=== PATIENT | female | born 1980 | race American Indian/Alaskan Native ===

== ENCOUNTER 2017-08-26 22:43 | Emergency (ER) | payer MEDICAID ==
[2017-08-26] MEDS ORDERED: NACL 0.9% 1000 ML 1,000 ML IV ONE (22:56)
[2017-08-26] MEDS ORDERED: REGLAN IV ONE (22:57)
[2017-08-26] MEDS ORDERED: BENADRYL IV ONE (22:57)
[2017-08-26] MEDS ORDERED: FIORICET PO ONE (22:58)
--- NOTE | 2017-08-26 22:59 | Emergency Department Report ---
ED General Adult HPI - General Chief complaint: Headache Stated complaint: HEADACHE Time Seen by Provider: 08/26/17 22:54 Source: patient, EMS Mode of arrival: Stretcher Limitations: No Limitations - History of Present Illness Initial comments: Patient complains of a diffuse headache that started yesterday. Patient states she has a history of headaches but has not had one like this in quite some time. She states this is not the worse headache of her life. She describes the pain as throbbing and rates it a 9 out of 10. She denies a fever or any other associated symptoms. - Related Data Previous Rx's Medication Instructions Recorded Last Taken Type ALBUTEROL Inhaler [ProAir HFA 2 puff IH QID PRN #1 inhalation 09/09/15 Unknown Rx Inhaler] predniSONE [Deltasone] 20 mg PO QDAY #3 tab 09/09/15 Unknown Rx Butalb/Acetaminophen/Caffeine 1 cap PO Q6HR PRN #30 cap 08/27/17 Unknown Rx [Fioricet 50-300-40 mg CAP] Allergies Allergy/AdvReac Type Severity Reaction Status Date / Time No Known Allergies Allergy Verified 09/09/15 08:19 ED Review of Systems ROS: Stated complaint: HEADACHE Other details as noted in HPI Comment: All other systems reviewed and negative Constitutional: denies: chills, fever Eyes: denies: eye pain, eye discharge, vision change ENT: denies: ear pain, throat pain Respiratory: denies: cough, shortness of breath, wheezing Cardiovascular: denies: chest pain, palpitations Endocrine: no symptoms reported Gastrointestinal: denies: abdominal pain, nausea, diarrhea Genitourinary: denies: urgency, dysuria, discharge Musculoskeletal: denies: back pain, joint swelling, arthralgia Skin: denies: rash, lesions Neurological: denies: headache, weakness, paresthesias Psychiatric: denies: anxiety, depression Hematological/Lymphatic: denies: easy bleeding, easy bruising ED Past Medical Hx - Past Medical History Hx Asthma: Yes - Surgical History Past Surgical History?: Yes Additional Surgical History: - Social History Smoking Status: Current Every Day Smoker Substance Use Type: None - Medications Home Medications: Home Medications Medication Instructions Recorded Confirmed Last Taken Type ALBUTEROL Inhaler [ProAir HFA 2 puff IH QID PRN #1 inhalation 09/09/15 Unknown Rx Inhaler] predniSONE [Deltasone] 20 mg PO QDAY #3 tab 09/09/15 Unknown Rx Butalb/Acetaminophen/Caffeine 1 cap PO Q6HR PRN #30 cap 08/27/17 Unknown Rx [Fioricet 50-300-40 mg CAP] ED Physical Exam - General Limitations: No Limitations General appearance: alert, in no apparent distress - Head Head exam: Present: atraumatic, normocephalic - Eye Eye exam: Present: normal appearance - ENT ENT exam: Present: mucous membranes moist - Neck Neck exam: Present: normal inspection - Respiratory Respiratory exam: Present: normal lung sounds bilaterally. Absent: respiratory distress - Cardiovascular Cardiovascular Exam: Present: regular rate, normal rhythm. Absent: systolic murmur, diastolic murmur, rubs, gallop - GI/Abdominal GI/Abdominal exam: Present: soft, normal bowel sounds - Extremities Exam Extremities exam: Present: normal inspection - Back Exam Back exam: Present: normal inspection - Neurological Exam Neurological exam: Present: alert, oriented X3 - Psychiatric Psychiatric exam: Present: normal affect, normal mood - Skin Skin exam: Present: warm, dry, intact, normal color. Absent: rash ED Course Vital Signs 08/26/17 08/26/17 08/26/17 22:52 22:57 22:58 Temperature 98.3 F Pulse Rate 68 Respiratory 20 20 Rate Blood Pressure Blood Pressure 146/69 [Right] O2 Sat by Pulse 100 99 100 Oximetry 08/26/17 08/26/17 08/27/17 23:00 23:30 00:00 Temperature Pulse Rate Respiratory Rate Blood Pressure 146/78 133/73 146/69 Blood Pressure [Right] O2 Sat by Pulse 98 93 98 Oximetry ED Medical Decision Making - Medical Decision Making Patient had relief of headache with medications Critical care attestation.: If time is entered above; I have spent that time in minutes in the direct care of this critically ill patient, excluding procedure time. ED Disposition Clinical Impression: Headache Disposition: DC- TO HOME OR SELFCARE Is pt being admited?: No Does the pt Need Aspirin: No Condition: Stable Instructions: Acute Headache (ED) Prescriptions: Butalb/Acetaminophen/Caffeine [Fioricet 50-300-40 mg CAP] 1 cap PO Q6HR PRN #30 cap PRN Reason: Headache Time of Disposition: 00:42
[2017-08-26] MEDS ORDERED: IMITREX SUB-Q ONE (23:40)
[2017-08-27 01:38] VITALS: BP 122/68
== END 2017-08-27 01:50 | disposition home or self-care (01) ==
LOC: ED 22:43
DX: R51 Headache (principal); J45.909 Unspecified asthma, uncomplicated; F17.200 Nicotine dependence, unspecified, uncomplicated
CPT/HCPCS: 96372; 96374; 96375; 99282; J1200; J2765; J2930; J7030; J3030

== ENCOUNTER 2019-07-06 22:26 | Emergency (ER) | payer SELFPAY ==
[2019-07-06] MEDS ORDERED: CLINDAMYCIN 600 MG/50 mL 600 MG/50 ML BAG IV ONE (22:37)
[2019-07-06] MEDS ORDERED: MORPHINE 4 MG/1 ML INJ IV ONE (22:37)
[2019-07-06] MEDS ORDERED: SODIUM CHLORIDE 0.9% 1000 ML 1,000 ML IV ONE (22:37)
[2019-07-06] MEDS ORDERED: dexAMETHasone 20 MG/5 ML VIAL IV ONE (22:37)
[2019-07-06] MEDS ORDERED: ONDANSETRON 4 MG/2 ML INJ IV ONE (22:37)
--- NOTE | 2019-07-07 00:08 | Emergency Department Report ---
ED General Adult HPI - General Chief complaint: Skin/Abscess/Foreign Body Stated complaint: TOOTH ABCESS Time Seen by Provider: 07/06/19 22:37 Source: patient, EMS Mode of arrival: Stretcher Limitations: No Limitations - History of Present Illness Initial comments: Patient is a 38-year-old Female is presenting with dental abscess to tooth #31. Patient was seen in an outside emergency department yesterday and was started on amoxicillin. Patient also had a drainable area which was I&D'd. Patient has a small wick in place at this time. Patient states that she is continued to have worsening swelling and pain. Patient was also started on NSAIDs. Patient started on amoxicillin. Patient states she feels as though the swelling has worsened and she has some difficulty with breathing and feels as though her throat is closing. Patient has had subjective fevers but she denies nausea vomiting diarrhea cough cold or congestion at this time. Severity scale (0 -10): 10 - Related Data Previous Rx's Medication Instructions Recorded Last Taken Type ALBUTEROL Inhaler (OR & NICU) 2 puff IH QID PRN #1 inhalation 09/09/15 Unknown Rx [ProAir HFA Inhaler] predniSONE [Deltasone] 20 mg PO QDAY #3 tab 09/09/15 Unknown Rx Butalb/Acetaminophen/Caffeine 1 cap PO Q6HR PRN #30 cap 08/27/17 Unknown Rx [Fioricet 50-300-40 mg CAP] Clindamycin [Clindamycin CAP] 300 mg PO Q8H #21 cap 07/07/19 Unknown Rx HYDROcodone/ACETAMINOPHEN 15 ml PO Q6H PRN #150 solution 07/07/19 Unknown Rx [Hydrocodon-Acetamin 7.5-325/15] predniSONE [Deltasone] 20 mg PO QDAY #5 tab 07/07/19 Unknown Rx Allergies Allergy/AdvReac Type Severity Reaction Status Date / Time No Known Allergies Allergy Verified 09/09/15 08:19 ED Review of Systems ROS: Stated complaint: TOOTH ABCESS Other details as noted in HPI Comment: All other systems reviewed and negative ED Past Medical Hx - Past Medical History Hx Asthma: Yes - Surgical History Additional Surgical History: - Social History Smoking Status: Current Every Day Smoker - Medications Home Medications: Home Medications Medication Instructions Recorded Confirmed Last Taken Type ALBUTEROL Inhaler (OR & NICU) 2 puff IH QID PRN #1 inhalation 09/09/15 Unknown Rx [ProAir HFA Inhaler] predniSONE [Deltasone] 20 mg PO QDAY #3 tab 09/09/15 Unknown Rx Butalb/Acetaminophen/Caffeine 1 cap PO Q6HR PRN #30 cap 08/27/17 Unknown Rx [Fioricet 50-300-40 mg CAP] Clindamycin [Clindamycin CAP] 300 mg PO Q8H #21 cap 07/07/19 Unknown Rx HYDROcodone/ACETAMINOPHEN 15 ml PO Q6H PRN #150 solution 07/07/19 Unknown Rx [Hydrocodon-Acetamin 7.5-325/15] predniSONE [Deltasone] 20 mg PO QDAY #5 tab 07/07/19 Unknown Rx ED Physical Exam - General Limitations: No Limitations General appearance: alert, in no apparent distress - Head Head exam: Present: atraumatic, normocephalic - Expanded Head Exam Expanded 1 - Patient with swelling to the angle of the jaw with some skin induration. - Eye Eye exam: Present: normal appearance - ENT ENT exam: Present: mucous membranes moist, other (patient was pain to palpation to tooth #30-32. Wick is in place. Patient has some mild trismus however she has no muffled voice posterior pharynx is within normal limits and the patient is able to swallow without difficulty) - Neck Neck exam: Present: normal inspection - Respiratory Respiratory exam: Present: normal lung sounds bilaterally. Absent: respiratory distress, wheezes, rales, rhonchi - Cardiovascular Cardiovascular Exam: Present: regular rate, normal rhythm, normal heart sounds. Absent: systolic murmur, diastolic murmur, rubs, gallop - GI/Abdominal GI/Abdominal exam: Present: soft, normal bowel sounds. Absent: distended, tenderness, guarding - Extremities Exam Extremities exam: Present: normal inspection - Back Exam Back exam: Present: normal inspection - Neurological Exam Neurological exam: Present: alert, oriented X3 - Psychiatric Psychiatric exam: Present: normal affect, normal mood - Skin Skin exam: Present: warm, dry, intact, normal color. Absent: rash ED Course Vital Signs 07/06/19 07/06/19 23:04 23:08 Temperature 98.3 F Pulse Rate 79 Respiratory 18 18 Rate Blood Pressure 110/64 O2 Sat by Pulse 99 Oximetry ED Medical Decision Making - Medical Decision Making Patient was placed on amoxicillin. Given the patient's dental abscess with facial cellulitis wants a stronger antibiotic at this time. Patient given IV clindamycin and will be discharged with clindamycin as well. Patient started on a short course of steroids. Patient does appear to be safe for discharge. Patient has an appointment to see oral surgery on Tuesday. Critical care attestation.: If time is entered above; I have spent that time in minutes in the direct care of this critically ill patient, excluding procedure time. ED Disposition Clinical Impression: Dental abscess, Facial cellulitis Disposition: TO HOME OR SELFCARE Is pt being admited?: No Does the pt Need Aspirin: No Condition: Stable Instructions: Dental Abscess (ED) Additional Instructions: Please follow up with oral surgery Time of Disposition: 00:09
[2019-07-07 00:41] VITALS: BP 106/64
== END 2019-07-07 00:42 | disposition home or self-care (01) ==
LOC: ED 22:26
DX: K04.7 Periapical abscess without sinus (principal); L03.211 Cellulitis of face; J45.909 Unspecified asthma, uncomplicated; F17.200 Nicotine dependence, unspecified, uncomplicated; Z79.899 Other long term (current) drug therapy
CPT/HCPCS: 96365; 96375; 99283; J1100; J2270; J2405; J7030

== ENCOUNTER 2019-07-15 15:10 | Emergency (ER) | payer SELFPAY ==
[2019-07-15 15:25] VITALS: BP 130/74
[2019-07-15] MEDS ORDERED: diphenhydrAMINE 50 MG/ML VIAL IV ONE (17:28)
[2019-07-15] MEDS ORDERED: KETOROLAC 30 MG/1 ML INJ IV ONE (17:28)
[2019-07-15] MEDS ORDERED: METOCLOPRAMIDE 10 MG/2 ML INJ IV ONE (17:28)
[2019-07-15] MEDS ORDERED: SODIUM CHLORIDE 0.9% 1000 ML 1,000 ML IV ONE (17:28)
--- NOTE | 2019-07-15 17:31 | Emergency Department Report ---
ED Headache HPI - General Chief Complaint: Headache Stated Complaint: VOMITING,HEADACHE Time Seen by Provider: 07/15/19 17:28 - History of Present Illness Initial Comments: pt is a 38 yo female who presents to the ED with c/o right temporal CARTAGENA that began this morning. she has associated photophobia, nausea, and vomiting. she denies any fever, neck stiffness, thunderclap headache, diarrhea, numbness, weakness, or vision changes. she states she has been treated in the ED before for "migraines." she denies any allergies to meds. she states her LNMP two weeks ago. Allergies/Adverse Reactions: Allergies No Known Allergies Allergy (Verified 09/09/15 08:19) Home Medications: Ambulatory Orders Albuterol INH(or & Nicu Only) [ProAir HFA Inhaler] 2 puff IH QID PRN #1 inha lation 09/09/15 predniSONE [Deltasone] 20 mg PO QDAY #3 tab 09/09/15 Butalb/Acetaminophen/Caffeine [Fioricet 50-300-40 mg CAP] 1 cap PO Q6HR PRN #30 cap 08/27/17 Clindamycin [Clindamycin CAP] 300 mg PO Q8H #21 cap 07/07/19 HYDROcodone/ACETAMINOPHEN [Hydrocodon-Acetamin 7.5-325/15] 15 ml PO Q6H PRN #150 solution 07/07/19 predniSONE [Deltasone] 20 mg PO QDAY #5 tab 07/07/19 Butalb/Acetaminophen/Caffeine [Fioricet 50-300-40 mg CAP] 1 cap PO Q8HR PRN #10 cap 07/15/19 Ondansetron [Zofran Odt] 4 mg PO Q8HR PRN #10 tab.rapdis 07/15/19 ED Review of Systems ROS: Stated complaint: VOMITING,HEADACHE Other details as noted in HPI Comment: All other systems reviewed and negative ED Past Medical Hx - Past Medical History Previous Medical History?: Yes Hx Headaches / Migraines: Yes Hx Asthma: Yes - Surgical History Past Surgical History?: No Additional Surgical History: - Social History Smoking Status: Current Every Day Smoker Substance Use Type: Alcohol, Marijuana - Medications Home Medications: Home Medications Medication Instructions Recorded Confirmed Last Taken Type Albuterol INH(or & Nicu Only) 2 puff IH QID PRN #1 inhalation 09/09/15 Unknown Rx [ProAir HFA Inhaler] predniSONE [Deltasone] 20 mg PO QDAY #3 tab 09/09/15 Unknown Rx Butalb/Acetaminophen/Caffeine 1 cap PO Q6HR PRN #30 cap 08/27/17 Unknown Rx [Fioricet 50-300-40 mg CAP] Clindamycin [Clindamycin CAP] 300 mg PO Q8H #21 cap 07/07/19 Unknown Rx HYDROcodone/ACETAMINOPHEN 15 ml PO Q6H PRN #150 solution 07/07/19 Unknown Rx [Hydrocodon-Acetamin 7.5-325/15] predniSONE [Deltasone] 20 mg PO QDAY #5 tab 07/07/19 Unknown Rx Butalb/Acetaminophen/Caffeine 1 cap PO Q8HR PRN #10 cap 07/15/19 Unknown Rx [Fioricet 50-300-40 mg CAP] Ondansetron [Zofran Odt] 4 mg PO Q8HR PRN #10 tab.rapdis 07/15/19 Unknown Rx ED Physical Exam - General Limitations: No Limitations General appearance: alert, in no apparent distress - Head Head exam: Present: atraumatic, normocephalic - Eye Eye exam: Present: normal appearance, PERRL, EOMI - ENT ENT exam: Present: mucous membranes moist - Respiratory Respiratory exam: Present: normal lung sounds bilaterally. Absent: respiratory distress, wheezes, rales, rhonchi, stridor, chest wall tenderness, accessory muscle use, decreased breath sounds, prolonged expiratory - Cardiovascular Cardiovascular Exam: Present: regular rate, normal rhythm, normal heart sounds. Absent: systolic murmur, diastolic murmur, rubs, gallop - Neurological Exam Neurological exam: Present: alert, oriented X3, CN II-XII intact, normal gait, other (normal finger to nose, normal heel to nguyen, equal bereavement program coordinator strength, 5/5 strength in the BUE/BLE, sensation intact throughout, normal tandem walking, no pronator drift, no facial asymmetry, no focal neuro deficit). Absent: motor sensory deficit - Psychiatric Psychiatric exam: Present: normal affect, normal mood - Skin Skin exam: Present: warm, dry, intact ED Course Vital Signs 07/15/19 15:21 Temperature 97.6 F Pulse Rate 68 Respiratory 18 Rate Blood Pressure 130/74 O2 Sat by Pulse 100 Oximetry ED Medical Decision Making - Medical Decision Making pt is a 38 yo female who presents to the ED with c/o right temporal CARTAGENA that began this morning. she has associated photophobia, nausea, and vomiting. she denies any fever, neck stiffness, thunderclap headache, diarrhea, numbness, weakness, or vision changes. she states she has been treated in the ED before for "migraines." she denies any allergies to meds. she states her LNMP two weeks ago. VSS. no neuro deficits on examination. Patient given 1 L normal saline, Reglan, Benadryl, Toradol and her headache resolved. Given prescription for fioricet and zofran to take as needed. advised pt to please take medication as prescribed as needed. increase your fluid intake over the next several days. follow up with a primary care doctor and a neurologist. return to the emergency room for any new or worsening symptoms. - Differential Diagnosis migraine, tension CARTAGENA, cluster CARTAGENA, sinusitis, ICH Critical care attestation.: If time is entered above; I have spent that time in minutes in the direct care of this critically ill patient, excluding procedure time. ED Disposition Clinical Impression: Headache Qualifiers: Headache type: unspecified Headache chronicity pattern: acute headache Intractability: not intractable Qualified Code(s): R51 - Headache Disposition: DC-01 TO HOME OR SELFCARE Is pt being admited?: No Does the pt Need Aspirin: No Condition: Stable Instructions: Migraine Headache (ED) Additional Instructions: please take medication as prescribed as needed. increase your fluid intake over the next several days. follow up with a primary care doctor and a neurologist. return to the emergency room for any new or worsening symptoms. Prescriptions: Butalb/Acetaminophen/Caffeine [Fioricet 50-300-40 mg CAP] 1 cap PO Q8HR PRN #10 cap PRN Reason: headache Ondansetron [Zofran Odt] 4 mg PO Q8HR PRN #10 tab.rapdis PRN Reason: Nausea And Vomiting Referrals: ALL DILLON MD [Staff Physician] - 2-3 Days [facility] [place] [Outside] - 2-3 Days [facility] [Outside] - 2-3 Days ALEXA GLOVER MD [Staff Physician] - 2-3 Days YOSELIN WILL MD [Referring] - 2-3 Days ELI FERNANDEZ MD [Staff Physician] - 2-3 Days Forms: Accompanied Note, Work/School Release Form(ED) Time of Disposition: 18:30 Print Language: SPANISH
== END 2019-07-15 19:01 | disposition home or self-care (01) ==
LOC: ED 15:10
DX: R51 Headache (principal); R11.2 Nausea with vomiting, unspecified; H53.149 Visual discomfort, unspecified; J45.909 Unspecified asthma, uncomplicated; G43.909 Migraine, unspecified, not intractable, without status migrainosus; F17.200 Nicotine dependence, unspecified, uncomplicated; F12.10 Cannabis abuse, uncomplicated; Z98.890 Other specified postprocedural states; Z79.899 Other long term (current) drug therapy
CPT/HCPCS: 96361; 96374; 96375; 99282; J1200; J1885; J2765; J7030

== ENCOUNTER 2021-06-11 20:01 | Emergency (ER) | payer SELFPAY ==
[2021-06-11] MEDS ORDERED: dexAMETHasone 20 MG/5 ML VIAL IV ONE (22:30)
[2021-06-11] MEDS ORDERED: KETOROLAC 30 MG/1 ML INJ IV ONE (22:30)
[2021-06-11] MEDS ORDERED: SUMAtriptan SUCCINATE 6 MG/0.5 ML INJ SUB-Q ONE (22:30)
[2021-06-11] MEDS ORDERED: MORPHINE 4 MG/1 ML INJ IV ONE (22:31)
[2021-06-11] MEDS ORDERED: ONDANSETRON 4 MG/2 ML INJ IV ONE (22:31)
--- NOTE | 2021-06-11 22:34 | Emergency Department Report ---
ED Headache HPI - General Chief Complaint: Headache Stated Complaint: MIGRAINE Time Seen by Provider: 06/11/21 22:24 - History of Present Illness Initial Comments: Chief complaint: "A migraine." History ago is 40-year-old female with history of asthma and migraine headache who presents with severe headache tinnitus in right temporal region. Photophobia vomiting. This headache present for 2 days. Has had previous ED visits for headache. Has had migraine headaches since age of 18. Normally has severe headache every few months. Unknown triggers. She does not have a primary physician. Timing/Duration: other (2 days) Quality: severe Head Injury Location: temporal (Right temporal) Recent Head Trauma: frequent headaches Modifying Factors: improves with: exposure to light Associated Symptoms: nausea/vomiting Allergies/Adverse Reactions: Allergies No Known Allergies Allergy (Verified 09/09/15 08:19) Home Medications: Ambulatory Orders Albuterol Mdi (or & Nicu Only) [ProAir HFA Inhaler] 2 puff IH QID PRN #1 i nhalation 09/09/15 predniSONE [Deltasone] 20 mg PO QDAY #3 tab 09/09/15 Butalb/Acetaminophen/Caffeine [Fioricet 50-300-40 mg CAP] 1 cap PO Q6HR PRN #30 cap 08/27/17 Clindamycin [Clindamycin CAP] 300 mg PO Q8H #21 cap 07/07/19 HYDROcodone/ACETAMINOPHEN [Hydrocodon-Acetamin 7.5-325/15] 15 ml PO Q6H PRN #150 solution 07/07/19 predniSONE [Deltasone] 20 mg PO QDAY #5 tab 07/07/19 Butalb/Acetaminophen/Caffeine [Fioricet 50-300-40 mg CAP] 1 cap PO Q8HR PRN #10 cap 07/15/19 Ondansetron [Zofran Odt] 4 mg PO Q8HR PRN #10 tab.rapdis 07/15/19 Ibuprofen [Motrin 800 MG tab] 800 mg PO Q8HR PRN #20 tablet 06/12/21 Promethazine [Phenergan] 25 mg PO Q6HR PRN #10 tab 06/12/21 SUMAtriptan succinate [Imitrex] 50 mg PO DAILY PRN #10 tablet 06/12/21 ED Review of Systems ROS: Stated complaint: MIGRAINE Other details as noted in HPI Comment: All other systems reviewed and negative Constitutional: denies: fever, malaise Eyes: denies: as per HPI Respiratory: denies: cough, shortness of breath Cardiovascular: denies: chest pain Gastrointestinal: nausea, vomiting Neurological: headache. denies: numbness, paresthesias Psychiatric: denies: auditory hallucinations ED Past Medical Hx - Past Medical History Previous Medical History?: Yes Hx Headaches / Migraines: Yes Hx Asthma: Yes - Surgical History Past Surgical History?: Yes Additional Surgical History: - Social History Smoking Status: Current Every Day Smoker Substance Use Type: Alcohol, Marijuana - Medications Home Medications: Home Medications Medication Instructions Recorded Confirmed Last Taken Type Albuterol Mdi (or & Nicu Only) 2 puff IH QID PRN #1 inhalation 09/09/15 Unknown Rx [ProAir HFA Inhaler] predniSONE [Deltasone] 20 mg PO QDAY #3 tab 09/09/15 Unknown Rx Butalb/Acetaminophen/Caffeine 1 cap PO Q6HR PRN #30 cap 08/27/17 Unknown Rx [Fioricet 50-300-40 mg CAP] Clindamycin [Clindamycin CAP] 300 mg PO Q8H #21 cap 07/07/19 Unknown Rx HYDROcodone/ACETAMINOPHEN 15 ml PO Q6H PRN #150 solution 07/07/19 Unknown Rx [Hydrocodon-Acetamin 7.5-325/15] predniSONE [Deltasone] 20 mg PO QDAY #5 tab 07/07/19 Unknown Rx Butalb/Acetaminophen/Caffeine 1 cap PO Q8HR PRN #10 cap 07/15/19 Unknown Rx [Fioricet 50-300-40 mg CAP] Ondansetron [Zofran Odt] 4 mg PO Q8HR PRN #10 tab.rapdis 07/15/19 Unknown Rx Ibuprofen [Motrin 800 MG tab] 800 mg PO Q8HR PRN #20 tablet 06/12/21 Unknown Rx Promethazine [Phenergan] 25 mg PO Q6HR PRN #10 tab 06/12/21 Unknown Rx SUMAtriptan succinate [Imitrex] 50 mg PO DAILY PRN #10 tablet 06/12/21 Unknown Rx ED Physical Exam - General Limitations: No Limitations General appearance: alert, in no apparent distress, other (Appears uncomfortable, curled up on bed, left lateral decubitus position) - Head Head exam: Present: atraumatic, normocephalic - Eye Eye exam: Present: normal appearance - ENT ENT exam: Present: mucous membranes moist - Neck Neck exam: Present: normal inspection, full ROM - Respiratory Respiratory exam: Present: normal lung sounds bilaterally. Absent: respiratory distress, wheezes, rales, rhonchi - Cardiovascular Cardiovascular Exam: Present: regular rate, normal rhythm, normal heart sounds. Absent: systolic murmur, diastolic murmur, rubs, gallop - GI/Abdominal GI/Abdominal exam: Present: soft, normal bowel sounds. Absent: distended, tenderness, guarding, rebound - Extremities Exam Extremities exam: Present: normal inspection - Neurological Exam Neurological exam: Present: alert, oriented X3 - Psychiatric Psychiatric exam: Present: normal affect, normal mood - Skin Skin exam: Present: warm, dry, intact, normal color. Absent: rash ED Medical Decision Making - Medical Decision Making Migraine headache: Pain decreased from pain score 10 to pain score 3. Headache is very typical for migraine same area and same intensity without red flags of neurological deficit fever sudden onset In the emergency department patient received IV dexamethasone, IV ketorolac, IV morphine, IV Zofran and subcutaneous Imitrex. Patient's migraine headache is relieved with outpatient p.o. Imitrex. However patient does not have health insurance. She is unable to afford his medication. I encouraged her to use [employer] for prescription discount. I have prescribed meclizine ibuprofen and Imitrex. Critical care attestation.: If time is entered above; I have spent that time in minutes in the direct care of this critically ill patient, excluding procedure time. ED Disposition Clinical Impression: Migraine headache Disposition: 01 HOME / SELF CARE / HOMELESS Is pt being admited?: No Does the pt Need Aspirin: No Condition: Stable Instructions: Recurrent Migraine Headache, Myky-ie-Ydby Prescriptions: SUMAtriptan succinate [Imitrex] 50 mg PO DAILY PRN #10 tablet PRN Reason: Headache Ibuprofen [Motrin 800 MG tab] 800 mg PO Q8HR PRN #20 tablet PRN Reason: Pain , Severe (7-10) Promethazine [Phenergan] 25 mg PO Q6HR PRN #10 tab PRN Reason: Nausea Referrals: ALL DILLON MD [Staff Physician] - 3-5 Days
[2021-06-12 01:33] VITALS: BP 136/77
== END 2021-06-12 01:32 | disposition home or self-care (01) ==
LOC: ED 20:01
DX: G43.909 Migraine, unspecified, not intractable, without status migrainosus (principal); J45.909 Unspecified asthma, uncomplicated; F17.200 Nicotine dependence, unspecified, uncomplicated; F12.90 Cannabis use, unspecified, uncomplicated; Z72.89 Other problems related to lifestyle
CPT/HCPCS: 96372; 96374; 96375; 99282; J1100; J1885; J2270; J2405; J3490; J3030

== ENCOUNTER 2021-09-21 11:23 | Emergency (ER) | payer SELFPAY ==
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
[2021-09-21 14:41] VITALS: BP 122/81
== END 2021-09-21 14:40 | disposition home or self-care (01) ==
LOC: ED 11:23
DX: S43.402A Unspecified sprain of left shoulder joint, initial encounter (principal); J45.909 Unspecified asthma, uncomplicated; X58.XXXA Exposure to other specified factors, initial encounter; Y93.89 Activity, other specified; Y92.89 Other specified places as the place of occurrence of the external cause; Y99.8 Other external cause status
CPT/HCPCS: 72040; 99283